=== PATIENT | female | born 1985 | race Hispanic/Latino ===

== ENCOUNTER 2018-12-17 07:37 | Day surgery (SDC) | payer BC ==
[~2018-12-17 07:37] MED LIST: Ringers Lactate 0 ML IV ONE
[2018-12-17] MEDS ORDERED: NA CHLORIDE 0.9% 1,000 ML ONE ×2 (08:36→10:13)
[2018-12-17] MEDS ORDERED: PROPOFOL 200 MG/20 ML VIAL IV ONE ×3 (09:46→10:43)
[2018-12-17] MEDS ORDERED: MIDAZOLAM HCL 2 MG/2 ML INJ ONE (09:46)
[2018-12-17] MEDS ORDERED: LIDOCAINE 2% MPF 5 ML VIAL ONE (09:46)
[2018-12-17] MEDS ORDERED: LIDOCAINE 1% W/EPI 1:100,000 MDV 50 ML VIAL ONE (10:13)
[2018-12-17] MEDS ORDERED: FENTANYL CITR 100 MCG/2 ML ONE (10:48)
[2018-12-17] MEDS ORDERED: KETOROLAC 30 MG/ML INJ ONE (11:02)
--- NOTE | 2018-12-17 12:54 | OP ---
Date of Procedure: 12/17/2018 Surgeon: Анна Hanna MD Preoperative Diagnoses: Heavy menstrual bleeding, thickened endometrium, possible polycystic ovary s yndrome. Postoperative Diagnoses: Heavy menstrual bleeding, thickened endometrium, possible polycystic ovary syndrome. Polypoid endometrium. No intracavitary masses were noted on hysteroscopy. Anesthesia: General with LMA. Specimens: Endometrial curettings. Complications: None. Drains: None. Condition: Stable. Indications For Procedure: The patient is a 33-year-old with heavy periods. Transvaginal ultrasound was performed. Uterus found to be slightly enlarged with 1.4 cm thick lining. Continues to have he elan periods, right lower quadrant pain. The cyst on the right was only 2.7 cm, not concerning for an y neoplastic process. Discussed about the need for endometrial sampling, and if there is no cancer o r atypia that we would proceed with medical management with Mirena. Due to her morbid obesity, laurie rred to bring her to the hospital for her surgery. Procedure In Detail: After informed consent was verified, the patient was taken back to OR, placed i n a supine fashion on the operating table. MAC was given. She was positioned in a dorsal lithotomy position. Attempt was made to place a speculum and the patient could not tolerate or cooperate with the exam. After trying to calm her down and trying to do this again, she would not cooperate, and so anesthesia had to be converted to general with LMA. Once this was done, speculum was placed exposin g the cervix. Anterior lip grasped with 2 Allis clamps. Prep x3 with Betadine was done. SlimLine d iagnostic hysteroscope was introduced into the cervical canal with a 30-degree lens normal saline for distention traversed under direct vision. Uterine cavity was entered. Thickened endometrium was no tara, polypoid, most on the right lateral wall and posterior wall. No intracavitary masses. Scope wa s removed. Endometrial curettings were performed with a #2 curette. Adequate sampling was obtained without excessive scraping. Specimens were sent for permanent pathology. The patient tolerated the procedure well. EBL minimal. No complications or drains. She will follow up with us in 1 week if t here is no atypia or malignancy, plan to proceed with Mirena ordering and placement. If there is atypia or malignancy, then we will refer her to a [facility] oncologist. CARLOS/THU Voice ID: [id number] Report ID: [id number]
== END 2018-12-17 12:00 | disposition home or self-care (01) ==
LOC: OR 07:37
PROVIDERS: ATTEND Obstetrics & Gynecology
PROC: 0UJD8ZZ Inspection of Uterus and Cervix, Via Natural or Artificial Opening Endoscopic (ICD-10-PCS; 2018-12-17)
PROC: 0UDB7ZX Extraction of Endometrium, Via Natural or Artificial Opening, Diagnostic (ICD-10-PCS; principal; 2018-12-17 09:30)
DX: N84.0 Polyp of corpus uteri (principal); N92.0 Excessive and frequent menstruation with regular cycle; R93.89 Abnormal findings on diagnostic imaging of other specified body structures
CPT/HCPCS: 81025; 82962; 88305; J2250; J2704; J3010; J7030

== ENCOUNTER 2019-12-22 19:29 | Emergency (ER) | payer BC ==
--- OUTSIDE RECORDS SUMMARY | 2019-12-22 19:32 | XMS REPORT | Continuity of Care Document ---
:1985 Author Organization [employer] Care Team Providers Name Role Phone [employer] Unavailable Un available Problems Problem Status Onset Classification Date Comments Sourc e Date Reported Routine Active 09/02/2013 [facility] Gynecological Exam Test Active 09/02/2013 [facility] Negative Vaginal Active 09/02/2013 [facility] Discharge Abnormal Weight Active 09/02/2013 [facility] Gain Recent Weight Active 09/02/2013 [facility] G[facility] Involuntary Excessive Facial Active 09/02/2013 [facility] Or Body Hair (Hirsutism) Urinary Active 09/02/2013 [facility] Frequency Medications Medication Details Route Status Patient Ordering Order Source Instructions Provider Date Hydrocortisone 1 ; Start Active [facility] % External Cream Date: [facility] 08/31/2013 (Active) Fluconazole 150 ; Start Active [facility] Oral Tablet Date: 014 [facility] 08/31/2013 (Active) Sertraline HCl 50 ; Start Active [facility] Oral Tablet Date: 014 [facility] 07/21/2013 (Active) Allergies, Adverse Reactions, Alerts Substance Category Reaction Severity Reaction Status Date Comments S ource type Reported Sulfa Drugs drug drug Active [facility] allergy allergy [facility] Immunizations No Data Provided for This Section Results No Data Provided for This Section Pathology Reports No Data Provided for This Section Diagnostic Reports No Data Provided for This Section Consultation Notes No Data Provided for This Section Discharge Summaries No Data Provided for This Section History and Physicals No Data Provided for This Section Vital Signs No Data Provided for This Section Encounters Location Location Encounter Encounter Reason Attending ADM [facility] Stat Source Details Type Number For Provider Date Date Visit AUDIT [id number] 09/02 /2013 [facility] Procedures No Data Provided for This Section Assessment and Plan No Data Provided for This Section Plan of Care Plan of Care Date Source [Q] SUREPATH PAP RFX HR HPV 09/02/2013 [facility] 07/21/2013 Routine[L] Testosterone, Free, Direct 07/21/2013 Routine[Q] TESTOSTERONE, TOTAL, LC/MS/MS 07/21/2013 Routine[QLH] URINALYSIS, COMPLETE 08/31/2013 Routine Social History No Data Provided for This Section Family History Value Date Source Maternal history of Breast 09/02/2013 [facility] Cancer (V16.3); (Active) Maternal aunt's history of Breast Cancer (V16.3); (Active) Family history of Hypertension (V17.49); (Active) Family history of Diabetes Mellitus (V18.0); (Active) Family history of Migraine Headache (Active) Advance Directives Order Name Results Value Date Source Advance Directives Advance Directives No Advance 09/02/2013 [facility] Directives available. Functional Status No Data Provided for This Section
--- OUTSIDE RECORDS SUMMARY | 2019-12-22 19:33 | XMS REPORT | Summary of Care ---
:1985 Author Name JONATHAN Fox Address Unavailable Unavailable , Care Team Providers Name Role Phone KSENIA HOYOS Unavailable Unavailable MEDINA Fox Unavailable Unavailable JONATHAN Fox Unavailable Unavailable JONATHAN FERNANDEZ Unavailable Unavailable ALEX MORALEZ LA Unavailable Unavailable Unavailable Unavailable Unavailable Functional Status Name Dates Details Functional status health issues are not documented Status: Name Dates Details Cognitive status health issues are not documented Status: Problems Name Dates Details Urinary frequency (788.41, R35.0) Status : Active Visit for screening for infections w/pre domly sexual mode transmission (V74.5, Z11.3) Status: Active Abnormal weight gain (783.1, R63.5) Stat us: Active Vaginal discharge (623.5, N89.8) Status: Active Abnormal weight gain (783.1, R63.5) Stat us: Active Encounter for routine gynecological examination (V72.31, Z01 .419) Status: Active Hirsutism (704.1, L68.0) Status: Active Lipid screening (V77.91, Z13.220) Status : Active Screening for thyroid disorder (V77.0, Z13.29) Status: Active Screening for endocrine, nutritional, me tabolic and immunity disorder (V77.99, Z13.29) Status: Active Diabetes mellitus screening (V77.1, Z13.1) Status: Active Visit for screening mammogram (V76.12, Z12.31) Status: Active Unsatisfactory cervical cytology smear (795.08, R87.615) Status: Active Oral contraceptive prescribed (V25.01, Z30.011) Status: Active Screening for STD (sexually transmitted disease) (V74.5, Z11 .3) Status: Active Pelvic pain (R10.2) Status: Active Abdominal pain, epigastric (789.06, R10.13) Status: Active Upper respiratory infection, acute (465.9, J06.9) Status: Active Nausea with vomiting (787.01, R11.2) Sta tus: Active test negative (V72.41, Z32.02) Status: Active Follow-up arranged for 1 month Status: A ctive Malnutrition (263.9, E46) Status: Active Malabsorption due to intolerance, not elsewhere classified ( 579.8, K90.49) Status: Active Vitamin D deficiency (268.9, E55.9) Stat us: Active Medications Name Dates Details Sertraline HCl - 50 MG Oral Tablet Refills: 0 Start : 21-Jul-2013 Active NexIUM 40 MG Oral Capsule Delayed Release TAKE 1 CAPSULE ONCE DAILY. Quantity: 30 Refills: 1 MEDINA M.D., MARIN Start : 14-Jun-2009 Active Metoclopramide HCl - 10 MG Oral Tablet TAKE 1 TABLET AT BEDTIME. Quantity: 30 Refills: 0 MEDINA M.D., MARIN Start : 14-Jun-2009 Active Benzonatate 100 MG Oral Capsule TAKE 1 CAPSULE 3 TIMES DAILY. Quantity: 42 Refills: 0 MEDINA M.D., MARIN Start : 14-Jun-2009 Active Promethazine HCl - 12.5 MG Oral Tablet TAKE 1 TABLET EVERY 4 TO 6 HOURS NEEDED FOR NAUSEA. Quantity: 84 Refills: 0 MEDINA M.D., MARIN Start : 09-Apr-2010 Active Vitamin D (Ergocalciferol) 1.25 MG (94705 [facility]) Oral Capsule Take 1 capsule two times per week Quantity: 8 Refills: 3 MARIANA MCCORMACK APRN Start : 11-Mar-2019 Active Allergies and Adverse Reactions Name Dates Details amoxicillin (Allergy) Status: Active Bactrim SOLN (Allergy) Status: Active Sulfa Drugs (Allergy) Status: Active Sulfa Drugs (Allergy) Status: Active Past Medical History Name Dates Details History of anxiety disorder (V11.8, Z86.59) Status: Resolved History of Malabsorption due to intolera nce, not elsewhere classified (579.8, K90.49) Status: Resolved History of malnutrition (V12.1, Z86.39) Status: Resolved Procedures Procedure Dates Details History of Cholecystectomy Completed Immunization Name Dates Details Gardasil 9 Intramuscular Suspension Prefilled Syringe on: Lot #: [id number] Family History Name Dates Details Family history of Hypertension (V17.49) Comments: Family History Status: Active Family history of Diabetes Mellitus (V18.0) Comments: Family History Status: Active Family history of Migraine Headache Comm ents: Family History Status: Active Name Dates Details Family history of Breast Cancer (V16.3) Status: Active Family history of Congestive heart failure (CHF) (428.0, I50 .9) Status: Active Name Dates Details Family history of Breast Cancer (V16.3) Status: Active Family history of Cirrhosis, nonalcoholic (571.5, K74.60) Status: Active Social History Name Dates Details - Status: Name Dates Details Never smoked tobacco (finding) Vital Signs Date Test Result Details [id number] Weight 241 lb Status: Body mass index (BMI) [Ratio] 47.07 kg/m2 Status: Body surface area Derived from formula 2.02 m2 S tatus: Body height 60 in Status: Results Date Description Value Details Results not documented Plan of Care Name Dates Details Planned Observations Planned Goals not documented Planned Encounters Appointment; JOVANY CASTILLO M.D. On: 23-Nov-2019 15 :00 Instructions Name Dates Details Instructions not documented Encounters Appointment; JOVANY CASTILLO M.D. On: 30-Oct-2018 8: 00 Encounter Diagnosis: Problem not documented Appointment; DEEPA [facility] On: 03-Dec-2018 1 0:45 Encounter Diagnosis: Problem not documented Appointment; JOVANY CASTILLO M.D. On: 04-Dec-2018 8: 30 Encounter Diagnosis: Problem not documented Appointment; DEEPA J[facility] [facility] On: 31-Dec-2018 9 :00 Encounter Diagnosis: Problem not documented Appointment; JOVANY CASTILLO M.D. On: 13-Jan-2019 8:0 0 Encounter Diagnosis: Problem not documented Appointment; DEEPA J[address] [facility] On: 04-Feb-2019 9 :30 Encounter Diagnosis: Problem not documented Appointment; DEEPA J[address] [facility] On: 11-Mar-2019 9 :00 Encounter Diagnosis: Problem not documented Appointment; DEEPA J[address] [facility] On: 18-Mar-2019 9: 00 Encounter Diagnosis: Problem not documented Appointment; JOVANY CASTILLO M.D. On: 14-May-2019 9:0 0 Encounter Diagnosis: Problem not documented Appointment; JOVANY CASTILLO M.D. On: 26-May-2019 9: 30 Encounter Diagnosis: Problem not documented Appointment; JOVANY CASTILLO M.D. On: 04-Jun-2019 11 :15 Encounter Diagnosis: Problem not documented Appointment; JOVANY CASTILLO M.D. On: 16-Jul-2019 10: 30 Encounter Diagnosis: Problem not documented Appointment; JOVANY CASTILLO M.D. On: 23-Jul-2019 8: 00 Encounter Diagnosis: Problem not documented Appointment; JOVANY CASTILLO M.D. On: 23-Nov-2019 15 :00 Encounter Diagnosis: Problem not documented
--- OUTSIDE RECORDS SUMMARY | 2019-12-22 19:33 | XMS REPORT | Continuity of Care Document ---
:1985 Author Organization [facility] t Address [address] [place] [address] Care Team Providers Name Role Phone JONATHAN Attending Clinician Unavailable ALEX Attending Clinician Unavailable Problems Condition Condition Condition Status Onset Resolution Last Treating Co mments Source Name Details Category Date Date Treatment Clinician Date Follow-up Follow-up Problem Active Uni vers arranged arranged ity of for 1 for 1 [place] month month Physici ans History of History of Problem Resolve Univers anxiety anxiety d ity of disorder disorder [place] [facility] Malabsorpt Malabsorpt Problem Active U nivers ion due to ion due to it y of intoleranc intoleranc [place] e, not e, not Physici elsewhere elsewhere ans classified classified History of History of Problem Resolve Univers malnutriti malnutriti d it y of on on [place] [facility] Urinary Urinary Problem Active Univers frequency frequency ity of [place] [facility] Screening Screening Problem Active Uni vers for STD for STD ity of (sexually (sexually [place] transmitte transmitte Ph ysici d disease) d disease) an s Abnormal Abnormal Problem Active Unive rs weight weight ity of gain gain [place] [facility] Vaginal Vaginal Problem Active Univers discharge discharge ity of [place] [facility] ans Encounter Encounter Problem Active Uni vers for for ity of routine routine [place] gynecologi gynecologi Ph ysici eliezer eliezer ans examinatio examinatio n n Hirsutism Hirsutism Problem Active Uni vers ity of [place] [facility] ans Lipid Lipid Problem Active Univers screening screening ity of [place] [facility] ans Screening Screening Problem Active Uni vers for for ity of endocrine, endocrine, [place] nutritiona nutritiona Ph ysici l, l, ans metabolic metabolic and and immunity immunity disorder disorder Diabetes Diabetes Problem Active Unive rs mellitus mellitus ity of screening screening [place] Physici ans Visit for Visit for Problem Active Uni vers screening screening ity of mammogram mammogram Diana vaughan Physici ans Unsatisfac Unsatisfac Problem Active U nivers tory tory ity of cervical cervical [place] cytology cytology Physic i smear smear ans Oral Oral Problem Active Univers contracept contracept it y of jamal jamal [place] prescribed prescribed Ph ysici ans Pelvic Pelvic Problem Active Univers pain pain ity of [place] [facility] ans Abdominal Abdominal Problem Active Uni vers pain, pain, ity of epigastric epigastric [place] [facility] [place] Upper Upper Problem Active Univers respirator respirator it y of y y [place] infection, infection, Ph ysici acute acute ans Nausea Nausea Problem Active Univers with with ity of vomiting vomiting [place] [facility] ans Problem Active Uni vers test test ity of negative negative [place] [facility] ans Malnutriti Malnutriti Problem Active U nivers on on ity of [place] Phys[facility] ans Vitamin D Vitamin D Problem Active Uni vers deficiency deficiency it y of [place] [facility] ans Routine Problem Active 2013-09-02 Donaldo amrek Gynecologi 20:47:29 l eliezer Exam Routine [place] nn Gynecologi eliezer Exam Active 4 [facility] Problem Active 2013-09-02 Me moria Test 20:47:29 l Negative Jake Test Negative Active 4 [facility] Vaginal Problem Active 2013-09-02 Donaldo marek Discharge 20:47:29 l Vaginal Forbes Discharge Active 4 [facility] Abnormal Problem Active 2013-09-02 Mem oria Weight 20:47:29 l Gain Abnormal Alcon n Weight Gain Active 4 [facility] Excessive Problem Active 2013-09-02 Me moria Facial Or 20:47:29 l Body Hair Forbes (Hirsutism Excessive ) Facial Or Body Hair (Hirsutism ) Active 09/02/2013 [facility] Urinary Problem Active 2013-09-02 Donaldo marek Frequency 20:47:29 l Urinary Jake Frequency Active 4 [facility] Allergies, Adverse Reactions, Alerts Allergy Allergy Status Severity Reaction(s) Onset Inactive Treating Comm ents Source Name Type Date Date Clinician amoxicil Allergy Active Univers alicia to drug ity of (finding [place] ) Physici ans Sulfa Allergy Active Univers Drugs to drug ity of (finding [place] ) Physici ans Bactrim Allergy Active Univers SOLN to drug ity of (finding [place] ) Physici ans Sulfa Sulfa Active Memoria Drugs Drugs l Jake Family History Family Member Diagnosis Comments Start Date Stop Date Source Unknown Family Family history of Family History University of Member Hypertension [place] [facility] ians Unknown Family Family history of Family History University of Member Diabetes Mellitus [place] [facility] Unknown Family Family history of Family History University of Member Migraine Headache [place] [facility] Unknown Family Family History 2013-09-02 2013-09-02 Memori al Forbes Member 20:47:29 20:47:29 aunt Family history of Univers ity of Breast Cancer [place] [facility] cians aunt Family history of Univers ity of Congestive heart [place] [facility] failure (CHF) Mother Family history of Univers ity of Breast Cancer [place] [facility] cians Mother Family history of Univers ity of Cirrhosis, [place] Physicia ns nonalcoholic Social History Smoking Status Start Date Stop Date Source Never smoked tobacco (finding) U [facility]icians Medications Ordered Filled Start Stop Current Ordering Indication Dosage Frequency Signature Comments Components Source Medication Medication Date Date Medication? Clinician (SIG) Name Name Vitamin D Vitamin D Yes MARIANA Take 1 Univers (Ergocalcif (Ergocalcif 8-29 MCCORMACK QUARTZ CUTTER capsule ity of arianne) 1.25 arianne) 1.25 00:00: two times [place] MG (86875 MG (73707 00 per week P hysici UT) Oral UT) Oral ans Capsule Capsule Hydrocortis Yes ; Start Mem oria one 1 % - Date: l External 06:00: 08/31/2013 Her leyva Cream (Active) Fluconazole Yes ; Start Mem oria 150 MG Oral -18 Date: l Tablet 06:00: 08/31/2013 [place] nn 00 (Active) Sertraline Yes ; Start Donaldo marek HCl 50 MG 1-08 Date: l Oral Tablet 06:00: 07/21/2013 [place] 00 (Active) Sertraline Sertraline Yes U nivers HCl - 50 MG HCl - 50 MG 1-08 i ty of Oral Tablet Oral Tablet 00:00: [place] 00 Physici ans Promethazin Promethazin Yes MARIN HANEY TAKE 1 Univers e HCl - e HCl - 9-27 M.D. TABLET ity of 12.5 MG 12.5 MG 00:00: EVERY 4 TO [place] Oral Tablet Oral Tablet 00 6 HOURS Physici NEEDED FOR ans NAUSEA. NexIUM 40 NexIUM 40 2008-07 Yes MARIN MEDINA QD TAKE 1 Univers MG Oral MG Oral 2-02 M.D. CAPSULE ity of Capsule Capsule 00:00: ONCE [place] Delayed Delayed 00 DAILY. Physici Release Release ans Metoclopram Metoclopram 2008-07 Yes MARIN MEDINA 1 TAKE 1 Univers tamiko HCl - tamiko HCl - 2-02 M.D. TABLET AT ity of 10 MG Oral 10 MG Oral 00:00: BEDTIME. [place] Tablet Tablet 00 Physici ans Benzonatate Benzonatate 2008-07 Yes MARIN MEDINA Q0.3333D TAKE 1 Univers 100 MG Oral 100 MG Oral 2-02 M.D. CAPSULE 3 ity of Capsule Capsule 00:00: TIMES [place] 00 DAILY. Physici ans Immunizations Ordered Immunization Filled Immunization Date Status Commen ts Source Name Name Gardasil 9 Unknown Completed [facility] Physi cians Suspension Prefilled Syringe Vital Signs Vital Name Observation Time Observation Value Comments Source Weight 2019-11-23 17:21:00 241 [lb_av] Universi ty [facility] Physician s Body mass index 2019-11-23 17:21:00 47.07 kg/m2 Unive rsity of (BMI) [Ratio] [place] Phys[facility] ns Body height 2019-11-23 17:21:00 60 [facility] BP Systolic 2018-10-30 08:28:00 125 mm[facility]Hg[facility] Phys[facility] s BP Diastolic 2018-10-30 08:28:00 78 mm[Hg] Universi ty [facility] Physician s Height 2018-10-30 08:28:00 60 [in_us] [facility] Phys[facility] s Weight 2018-10-30 08:28:00 326.7 [lb_av] Univers ity [facility] Physician s Body Mass Index 2018-10-30 08:28:00 63.8 kg/m2 Unive rsity of Calculated [place] Physician s Temperature 2018-10-30 08:28:00 97.2 [degF] [facility] Physician s Heart Rate 2018-10-30 08:28:00 79 /min [facility] Physician s Procedures Procedure Date / Time Performing Clinician Source Performed [QL] COMPREHENSIVE 2019-02-04 00:00[facility] MET[facility]OLIC PANEL W/O eGFR Physici ans [QLH] VITAMIN A (RETINOL) 2019-02-04 00:00:00 Un [facility] Physicians [QLH] VITAMIN E 2019-02-04 00:00:00 [facility] (TOCOPHEROL) Physicians [LH] CBC (without 2019-02-04 00:00:00 [facility] differential) Physicians [QLH] FOLATE, SERUM 2019-02-04 00:00[facility] [facility] Physicians [QLH] HEMOGLOBIN A1c 2019-02-04 00:00:00 [facility] Physicians [QLH] IRON AND TOTAL IRON 2019-02-04 00:00:00 Un [facility] BINDING CAPACITY Physicians [QLH] PTH, INTACT (WITHOUT 2019-02-04 00:00:00 U [facility] CALCIUM) Physicians [QLH] VITAMIN B1, WHOLE 2019-02-04 00:00:00 Univ [facility] BLOOD Physicians [QLH] VITAMIN B12 2019-02-04 00:00:00 [facility] Physicians [QLH] VITAMIN D, 2019-02-04 00:00:00 [facility] 25-HYDROXY, LC/MS/MS Physicians [LH] CBC (without 2018-12-31 00:00:00 [facility] differential) Physicians [QL] COMPREHENSIVE 2018-12-31 00:00:00 [facility] METABOLIC PANEL W/O eGFR Physici ans [QLH] FOLATE, SERUM 2018-12-31 00:00:00 [facility] Physicians [QLH] HEMOGLOBIN A1c 2018-12-31 00:00:00 [facility] Physicians [QLH] IRON AND TOTAL IRON 2018-12-31 00:00:00 Un [facility] BINDING CAPACITY Physicians [QLH] PTH, INTACT (WITHOUT 2018-12-31 00:00:00 U [facility] CALCIUM) Physicians [QLH] VITAMIN A (RETINOL) 2018-12-31 00:00:00 Un [facility] Physicians [QLH] VITAMIN B1, WHOLE 2018-12-31 00:00:00 [facility] BLOOD Physicians [QLH] VITAMIN B12 2018-12-31 00:00:00 [facility] Physicians [QLH] VITAMIN D, 2018-12-31 00:00:00 [facility] 25-HYDROXY, LC/MS/MS Physicians [QL] VITAMIN E 2018-12-31 00:00:00 [place] [facility] (TOCOPHEROL) Physicians History of Cholecystectomy [facility] Physicians Plan of Care Planned Activity Planned Date Details Comments Source Future Scheduled Test 2013-09-02 20:47:29 Plan of Care [code Gwen Joseph = 74655-5] Encounters Start End Encounter Admission Attending Care Care Encounter Source Date/Time Date/Time Type Type Clinicians Facility Department ID 2019-05-26 Inpatient [facility] MEAGAN [id number] [facility] B 05:37:00 2019-11-23 2019-11-23 Appointmen LIZBETH CASTILLO Minimally [id number] Univers 15:00:00 15:00:00 t; JOVANY CASTILLO, Invasive ity of Ruddy MANZO [facility] [place] [facility] ([facility]) ans 2019-07-23 2019-07-23 Appointmen LIZBETH CASTILLO [id number] Univers 08:00:00 08:00:00 t; JOVANY CASTILLO i ty of [facility]dy [facility] [place] [facility] 2019-07-16 2019-07-16 AppointLIZBETH Mancilla [id number] Univers 10:30:00 10:30:00 t; JOVANY CASTILLO i ty of Ruddy MANZO [place] Ruddy Physici ans 2019-06-04 2019-06-04 Appointmen LIZBETH CASTILLO [id number] Univers 11:15:00 11:15:00 t; JOVANY CASTILLO i ty of Ruddy MANZO [place] Ruddy Physici ans 2019-05-26 2019-05-26 AppointLIZBETH Mancilla [id number] Univers 09:30:00 09:30:00 t; JOVANY CASTILLO i ty of Ruddy MANZO [facility] [place] [facility] ans 2019-05-14 2019-05-14 Appointmen LIZBETH CASTILLO [id number] Univers 09:00:00 09:00:00 t; JOVANY CASTILLO i ty of Ruddy MANZO [place] M.D. Physici ans 2019-03-18 2019-03-18 Appointmen WOLIN-RIKLI UTP UTP [id number] Univers 09:00:00 09:00:00 t; DEEPA Fierro, ity of [address] [facility] Physi ci RD ans 2019-03-11 2019-03-11 Appointmen WOLIN-RIKLI LIZBETH UTP [id number] Univers 09:00:00 09:00:00 t; DEEPA Fierro, ity of [address] [facility] Physi ci RD ans 2019-02-04 2019-02-04 Appointmen WOLIN-RIKLI LIZBETH UTP [id number] Univers 09:30:00 09:30:00 t; DEPEA Fierro, ity of [address] [facility] Physi ci RD ans 2019-01-13 2019-01-13 Appointmen LIZBETH CASTILLO UTP [id number] Univers 08:00:00 08:00:00 t; JOVANY CASTILLO, i ty of Ruddy MANZO [place] M.D. Physici ans 2018-12-31 2018-12-31 Appointmen WOLIN-RIKLI LIZBETH UTP [id number] Univers 09:00:00 09:00:00 t; DEEPA Fierro, ity of [address] [facility] Physi ci RD ans 2018-12-04 2018-12-04 Appointmen LIZBETH CASTILLO UTP [id number] Univers 08:30:00 08:30:00 t; JOVANY CASTILLO i ty of Ruddy MANZO [place] M.D. Physici ans 2018-12-03 2018-12-03 Appointmen WOLIN-RIKLI LIZBETH Multispecia [id number] Univers 10:45:00 10:45:00 t; DEEPA Fierro lty - ity of [address] [place] [facility] Physi ci RD ans 2018-10-30 2018-10-30 Appointmen LIZBETH CASTILLO [place] [id number] Univers 08:00:00 08:00:00 t; JOVANY CASTILLO, Surgery i ty of Ruddy MANZO [facility]ty [facility] as Ruddy Physici ans 2013-09-02 2013-09-02 Outpatient [facility] [id number] 14:47:29 14:47:29 Results Test Description Test Time Test Comments Results Result Comments Source [[facility]] VITAMIN D, 25-HYDROXY, LC/MS/MS 2019-02-04 09:30:01 Test Item Value Reference Range Interpretation Comme nts Vitamin D, 25-OH, Total 19.5 ng/ml 30.0-100.0 Refe rence range is based on (test code = Vitamin D, odessa mmendations in the 25-OH, Total) [facility] Clinical Practice Guideline (J Cl in Endocrinol Czytk5619;96:19 11-1930) [facility] Physicians[[facility]] HEMOGLOBIN [id number] 09:30:01 Test Item Value Reference Range Interpretation Comments Hemoglobin A1c; Above High Threshold 5.8 % <=5.6 (test code = 4548-4) [facility] Physicians[] CBC (without differential)2019-02-04 09:30:01 Test Item Value Reference Range Interpretation Comments WBC (test code = 6690-2) 8.1 {K/CMM} 3.7-10.4 RBC; Below Low Threshold (test 4.13 {M/CMM} 4.20-5.40 code = 789-8) Hgb (test code = 718-7) 12.0 g/dl 12.0-16.0 Hct (test code = 01090-8) 37.2 % 36.0-48.0 MCV (test code = 787-2) 90.1 fL 80.0-98.0 MCH (test code = 785-6) 29.1 pg 27.0-31.0 MCHC (test code = 786-4) 32.3 g/dl 32.0-36.0 RDW; Above High Threshold (test 15.3 % 11.5-14.5 code = 788-0) Platelet (test code = 81046-2) 378 {K/CMM} 133-450 Mean Platelet Volume (test code 8.3 fL 7.4-10.4 = 39055-3) [facility]] CMP [id number] 09:30:01 Test Item Value Reference Range Interpretation Comments Sodium Level 141 {mEq/l} 135-145 (test code = 2951-2) Potassium Level 3.9 {mEq/l} 3.5-5.1 (test code = 2823-3) Chloride Level 105 {mEq/l} 95-109 (test code = 2075-0) Carbon Dioxide 29 {mEq/l} 24-32 (test code = 8-9) AGAP (test code = 10.9 {mEq/l} 10.0-20.0 55390-7) Glucose Lvl; 113 mg/dl 70-99 Adult reference range Above High values reflect the Threshold (test clinical lucy delinesof the code = 2345-7) [employer]. Creatinine Lvl 0.60 mg/dl 0.50-1.40 (test code = 2160-0) Blood Urea 11 mg/dl 7-22 Nitrogen (test code = 3094-0) BUN/Creatinine 18 6-25 Ratio (test code = 3097-3) Total Protein 7.4 g/dl 6.4-8.4 (test code = 2885-2) Albumin Lvl (test 3.8 g/dl 3.5-5.0 code = 1751-7) Globulin (test 3.6 g/dl 2.7-4.2 code = 70013-9) A/G Ratio (test 1.1 0.7-1.6 code = 1759-0) Calcium Level 9.1 mg/dl 8.5-10.5 Total (test code = 59647-4) ALT (test code = 37 u/l 0-65 3-4) AST (test code = 11 u/l 0-37 30039-2) Bili Total (test 0.4 mg/dl 0.2-1.3 code = 1974-2) Alk Phos (test 100 u/l 39-136 code = 1783-0) eGFR (test code = 119 The eGFR i s calculated 58005-0) {ML/MIN/1.7} using the CKD-E PI formula. In mos t young, healthyindividu als the eGFR will be >9 0 mL/min/1.73m2. The eGFR declines with a ge. AneGFR of 60-89 may be normal in some population s, particularly th e elderly, forwhom the CKD -EPI formula has not been extensively alberta idated. Use of the eGFR isnot recommended in the following populations:Ind ividuals with unstable c reatinine concentrations, including patient s and those with seri ous co-morbid conditions.Alison ents with extremes in mus angel mass or diet.The tere a above are obtained fr om the National Kidney Disease Education [facility] am(NKDEP) which amanda pablo recommends that when the eGFR is used in patientswith ex tremes of body mass index for purposes of elena g dosing, the eGFR should be multiplied by t he estimated BMI. [facility][QL] FOLATE, [id number] 09:30:01 Test Item Value Reference Range Interpretation Comments Folate Level (test code = 2284-8) 16.9 ng/ml >=3.0 [facility]] IRON AND TOTAL IRON BINDING CAPACITY 2019-02-04 09:30:01 Test Item Value Reference Range Interpretation Comments Iron (test code = 2498-4) 42 ug/dL 30-160 % Satur Fe (test code = 2502-3) 17 % 12-57 TIBC (test code = 2500-7) 250 ug/dL 228-428 UIBC (test code = UIBC) 208 ug/dL 110-370 [facility]] VITAMIN [id number] 09:30:01 Test Item Value Reference Range Interpretation Comments Vitamin B12 Level (test code = 413 pg/ml 254-1320 2132-9) [facility]] PTH, INTACT (WITHOUT CALCIUM)2019-02-04 09:30:01 Test Item Value Reference Range Interpretation Comments Parathyroid Hormone Intact (test 46.0 pg/ml 18.4-80.1 code = 2731-8) [facility][H] Vit [id number] 09:30:01 Test Item Value Reference Range Interpretation Comments Vitamin A 39.3 ug/dL 18.9-57.3 Reference inter vals for vitamin Level (test A determined fr om code = LabCorpinternal studies. Vitamin A Individuals wit h vitamin A less Level) than 20ug/dL ar e considered vitamin A defic ient and those withserum letha ntrations less than 10 ug/dL a re consideredsever carson deficient.This test was developed and i ts performance characteristics determined by [facility]. It has not been cleared orappro kwaku by the Food and Drug Administration. Performed At: [address] [id number] Thurman MD Ph:[phone] [facility][H] Vitamin E [id number] 09:30:01 Test Item Value Reference Range Interpretation Comments Alpha-Tocoph 8.7 mg/L 5.9-19.4 This test was d eveloped and its arianne (test performance code = characteristics determined by [facility]-Tocoph [facility]. It has not been cleared arianne) orapproved by [facility] Food and Drug Administration. Gamma-Tocoph 1.3 mg/L 0.7-4.9 This test was d eveloped and its arianne (test performance code = characteristics determined by Gamma-Tocoph [facility]. It has not been cleared arianne) orapproved by t Food and Drug Administration. Reference intervals for a lpha and gamma-tocophero ldetermined from National Health and Nutrition ExaminationSurv ey, 9925-1503. Individuals wit h alpha-tocopherol levelsless than 5.0 mg/L are considered andrés min E deficient.Perfo rmed At: [address] [id number] Thurman MD Ph:[phone] [facility][QLH] VITAMIN B1, WHOLE [id number] 09:30:01 Test Item Value Reference Range Interpretation Comments Vitamin B1 150.2 66.5-200.0 This test was d eveloped and its Level (test nmol/L performance code = characteristics determined by Vitamin B1 [facility]. It has not been Level) cleared orappro kwaku by the Food and Drug Administration. Performed At: [address] [id number] Thurman MD Ph:[phone] [facility]
--- NOTE | 2019-12-22 20:27 | RAD REPORT ---
EXAM DESCRIPTION: RAD - Hand Right 3 View - 12/22/2019 8:17 pm CLINICAL HISTORY: PAIN COMPARISON: No comparisons FINDINGS: Soft tissue swelling is seen along the dorsum of the hand. No fracture or dislocation seen .
--- NOTE | 2019-12-22 20:35 | ER ---
Nurse's Notes [facility] Name: Mckenzie Agustin Age: 34 yrs Sex: Female : 1985 Arrival Date: 12/22/2019 Time: 19:34 Bed 13 Private MD: Diagnosis: Contusion of right hand Presentation: 12/21 19:43 Chief complaint: Patient states: Fell and landed on R hand. Reports pain and swelling ca1 on R hand. Coronavirus screen: Proceed with normal triage. Patient denies a cough. Patient denies shortness of breath or difficulty breathing. Patient denies measured and/or subjective temperature greater than 100.4F prior to today's visit. Patient denies travel on a cruise ship or to a country the [facility] currently lists as an affected area. Patient denies contact with known and/or suspected case of COVID-19. Ebola Screen: Patient negative for fever greater than or equal to 101.5 degrees Fahrenheit, and additional compatible Ebola Virus Disease symptoms Patient denies exposure to infectious person. Patient denies travel to an Ebola-affected area in the 21 days before illness onset. No symptoms or risks identified at this time. Initial Sepsis Screen: Does the patient meet any 2 criteria? No. Patient's initial sepsis screen is negative. Does the patient have a suspected source of infection? No. Patient's initial sepsis screen is negative. Risk Assessment: Do you want to hurt yourself or someone else? Patient reports no desire to harm self or others. Onset of symptoms was December 22, 2019. 19:43 Method Of Arrival: Ambulatory ca1 19:43 Acuity: DESIREE 4 ca1 SLINGER SEQUINS: 19:45 LMP 12/18/2019 ca1 Historical: - Allergies: 19:45 Sulfa (Sulfonamide Antibiotics); ca1 - Home Meds: 19:45 Cymbalta oral oral [Active]; Folic Acid Oral [Active]; ca1 - PMHx: 19:45 None; ca1 - PSHx: 19:45 Cholecystectomy; Tonsillectomy; Gastric Sleeve; ca1 - Immunization history:: Adult Immunizations up to date. - Social history:: Smoking status: Patient denies any tobacco usage or history of. - Family history:: not pertinent. - Hospitalizations: : No recent hospitalization is reported. Screenin:06 Abuse screen: Denies threats or abuse. Nutritional screening: No deficits noted. jd3 Tuberculosis screening: No symptoms or risk factors identified. Fall Risk Ambulatory Aid- None/Bed Rest/Nurse Assist (0 pts). Gait- Normal/Bed Rest/Wheelchair (0 pts) Mental Status- Oriented to own ability (0 pts). Total [place] Fall Scale indicates No Risk (0-24 pts). Assessment: 20:04 General: Appears in no apparent distress. uncomfortable, Behavior is calm, cooperative, jd3 appropriate for age. Pain: Complains of pain in right hand Quality of pain is described as aching, tender. Neuro: Level of Consciousness is awake, alert, obeys commands, Oriented to person, place, time, situation. Cardiovascular: Capillary refill < 3 seconds Patient's skin is warm and dry. Respiratory: Airway is patent Respiratory effort is even, unlabored, Respiratory pattern is regular, symmetrical. GI: No signs and/or symptoms were reported involving the gastrointestinal system. : No signs and/or symptoms were reported regarding the genitourinary system. EENT: No signs and/or symptoms were reported regarding the EENT system. Derm: Skin is intact, Skin is dry, Skin is normal, Skin temperature is warm. Musculoskeletal: Circulation, motion, and sensation intact. Range of motion: limited in right hand. 20:39 Reassessment: Patient appears in no apparent distress at this time. Patient and/or jd3 family updated on plan of care and expected duration. Pain level reassessed. Patient is alert, oriented x 3, equal unlabored respirations, skin warm/dry/pink. Patient states feeling better. Vital Signs: 19:43 BP 114 / 73; Pulse 66; Resp 15 S; Temp 97.3(TE); Pulse Ox 100% on R/A; Weight 104.33 kg ca1 (R); Height 5 ft. 0 in. (152.40 cm) (R); Pain 7/10; 19:43 Body Mass Index 44.92 (104.33 kg, 152.40 cm) ca1 ED Course: 19:34 Patient arrived in ED. cf2 19:44 Triage completed. ca1 19:45 Arm band placed on right wrist. ca1 19:50 Alexis Hughes MD is Attending Physician. rn 20:03 Louie Her RN is Primary Nurse. jd3 20:06 Patient has correct armband on for positive identification. Bed in low position. Call jd3 light in reach. Side rails up X 1. Pulse ox on. NIBP on. 20:07 Ice pack to injury. jd3 20:17 XRAY Hand RIGHT 3 View In Process Unspecified. EDMS 20:39 No provider procedures requiring assistance completed. Patient did not have IV access jcristhian during this emergency room visit. Administered Medications: No medications were administered Outcome: 20:34 Discharge ordered by . rn 20:39 Discharged to home ambulatory. jd3 20:39 Condition: stable 20:39 Discharge instructions given to patient, Instructed on discharge instructions, follow up and referral plans. Demonstrated understanding of instructions, follow-up care. 20:40 Patient left the ED. jd3 Signatures: Dispatcher [employer] EDRI Alexis Hughes MD MD rn Davies, Jonathon, RN RN jd3 Acob, Cheryl, RN RN ca1 Frazier, Celesta cf2
--- NOTE | 2019-12-22 20:35 | EDPHYS ---
Physician Documentation [facility] Name: Mckenzie Agustin Age: 34 yrs Sex: Female : 1985 Arrival Date: 12/22/2019 Time: 19:34 Bed 13 Private MD: ED Physician Alexis Hughes HPI: 12/21 19:55 This 34 yrs old Female presents to ER via Ambulatory with complaints of fall, rn Hand Pain. 19:55 The patient or guardian reports injury, pain. The complaints affect the right hand rn diffusely. Onset: The symptoms/episode began/occurred today. Modifying factors: The symptoms are alleviated by holding still, the symptoms are aggravated by movement. Severity of symptoms: At their worst the symptoms were mild, in the emergency department the symptoms are unchanged. The patient has not experienced similar symptoms in the past. Reports tripped, walking, fell with outstretched hand to brace fall, no wrist or elbow/arm pain, + mild hand pain in palm of right hand, no finger pain. . 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 - Social history:: Smoking status: Patient denies any tobacco usage or history of. - Family history:: not pertinent. - Hospitalizations: : No recent hospitalization is reported. ROS: 19:55 Constitutional: Negative for fever, chills, and weight loss, Eyes: Negative for injury, rn pain, redness, and discharge, Neck: Negative for injury, pain, and swelling, MS/Extremity: + right hand injury and pain Skin: Negative for injury, rash, and discoloration, Neuro: Negative for headache, weakness, numbness, tingling Exam: 19:55 Constitutional: This is a well developed, well nourished patient who is awake, alert, rn and in no acute distress. Head/Face: Normocephalic, atraumatic. Skin: Warm, dry MS/ Extremity: Pulses equal, no cyanosis. Neurovascular intact. + mild tenderness along right palm of hand around 2nd/4th MC, no gross deformity, no swelling, no ecchymosis, no open wounds. Vital Signs: 19:43 BP 114 / 73; Pulse 66; Resp 15 S; Temp 97.3(TE); Pulse Ox 100% on R/A; Weight 104.33 kg ca1 (R); Height 5 ft. 0 in. (152.40 cm) (R); Pain 7/10; 19:43 Body Mass Index 44.92 (104.33 kg, 152.40 cm) ca1 MDM: 19:50 Patient medically screened. rn 20:34 Differential diagnosis: closed fracture, contusion. Data reviewed: vital signs, nurses rn notes, radiologic studies, plain films, and as a result, I will discharge patient. Test interpretation: by ED physician or midlevel provider: plain radiologic studies, Xray right hand neg for fracture/dislocation. Counseling: I had a detailed discussion with the patient and/or guardian regarding: the historical points, exam findings, and any diagnostic results supporting the discharge/admit diagnosis, radiology results, the need for outpatient follow up, to return to the emergency department if symptoms worsen or persist or if there are any questions or concerns that arise at home. Special discussion: I discussed with the patient/guardian in detail that at this point there is no indication for admission to the hospital. It is understood, however, that if the symptoms persist or worsen the patient needs to return immediately for re-evaluation. 12/21 19:54 Order name: XRAY Hand RIGHT 3 View; Complete Time: 20:33 rn Administered Medications: No medications were administered Disposition: 12/22/19 20:34 Discharged to Home. Impression: Contusion of right hand. - Condition is Stable. - Discharge Instructions: Hand Contusion. - Medication Reconciliation Form, Thank You Letter, Antibiotic Education, Prescription Opioid Use form. - Follow up: Private Physician; When: As needed; Reason: Recheck today's complaints, Re-evaluation by your physician. - Problem is new. - Symptoms have improved. Signatures: Dispatcher [employer] EDMS Alexis Hughes MD MD rn Davies, Jonathon, RN RN jd3 Gaye Bishop RN RN ca1 Corrections: (The following items were deleted from the chart) 20:40 20:34 12/22/2019 20:34 Discharged to Home. Impression: Contusion of right hand. jd3 Condition is Stable. Forms are Medication Reconciliation Form, Thank You Letter, Antibiotic Education, Prescription Opioid Use. Follow up: Private Physician; When: As needed; Reason: Recheck today's complaints, Re-evaluation by your physician. Problem is new. Symptoms have improved. rn
[2019-12-22 20:50] VITALS: BP 114/73; TEMP 97.3; O2SAT 100
== END 2019-12-22 20:40 | disposition home or self-care (01) ==
LOC: ER 19:29
DX: S60.221A Contusion of right hand, initial encounter (principal); W18.30XA Fall on same level, unspecified, initial encounter; Y93.9 Activity, unspecified; Y92.9 Unspecified place or not applicable; Z88.2 Allergy status to sulfonamides
CPT/HCPCS: 99283